=== PATIENT | female | born 1960 | race Caucasian/White ===

== ENCOUNTER 2018-11-24 06:55 | Day surgery (SDC) | payer BC, OTHER ==
[~2018-11-24] VITALS: Ht 165.1 cm; Wt 102.4 kg
[~2018-11-24 06:55] MED LIST: ACTOS; ATORVASTATIN; CANNABIS OIL; DICLOFENAC; HYDR-3601 PO; LEVOTHYROXINE; LOSARTAN; PANTOPRAZOLE; PROVENTIL INHALER; [UNRECOGNIZED DRUG - REMARK]
[2018-11-24 07:35] VITALS: Ht 165.1 cm; Wt 102.4 kg
[2018-11-24 07:54] VITALS: BP 135/76; PULSE 70; RESP 18
[2018-11-24] MEDS ORDERED: PROPOFOL 60 ML ONE (08:47)
[2018-11-24] MEDS ORDERED: LIDOCAINE 2% (SDV) 5 ML INJ ONE (08:47)
[2018-11-24 09:59] VITALS: BP 115/67; PULSE 66; RESP 16
[2018-11-24] MEDS ORDERED: FENTAnyl 50 MCG/ML VIAL IV PRN (10:00)
== END 2018-11-24 10:09 | disposition home or self-care (01) ==
LOC: GIL 06:55
PROVIDERS: ATTEND Internal Medicine Gastroenterology
DX: Z12.11 Encounter for screening for malignant neoplasm of colon (principal); K64.8 Other hemorrhoids; D12.2 Benign neoplasm of ascending colon; D12.5 Benign neoplasm of sigmoid colon; K44.9 Diaphragmatic hernia without obstruction or gangrene; K21.9 Gastro-esophageal reflux disease without esophagitis; I10 Essential (primary) hypertension; E11.9 Type 2 diabetes mellitus without complications; E03.9 Hypothyroidism, unspecified; J45.909 Unspecified asthma, uncomplicated
CPT/HCPCS: 43239; 45380; 45385; 82962; 88305; Z7610